=== PATIENT | male | born 1970 | race Caucasian/White ===

== ENCOUNTER 2021-08-08 00:23 | Inpatient (IN) | payer OTHER ==
[2021-08-08] VITALS (19 sets, daily range): BP systolic 88–142; BP diastolic 49–97
[~2021-08-08] VITALS: Ht 185.4 cm; Wt 97.1 kg
[2021-08-08] MEDS ORDERED: IPRATROPIUM NEB FS 0.5 MG/2.5 ML AMPUL.NEB ONE (00:30)
[2021-08-08] MEDS ORDERED: ALBUTEROL FS 2.5 MG/3 ML VIAL.NEB CONTNEB ONE (00:30)
[2021-08-08] MEDS ORDERED: IPRATROPIUM NEB FS 0.5 MG/2.5 ML AMPUL.NEB NEB ONE (00:30)
[2021-08-08] MEDS ORDERED: methylPREDNISolone SOD SUCC 125 MG/2ML VIAL IV ONE (00:30)
[2021-08-08] MEDS ORDERED: ALBUTEROL FS 2.5 MG/3 ML VIAL.NEB ONE (00:30)
--- NOTE | 2021-08-08 00:30 | NUR ---
RT NOTE LATE ENTRY: Pt rec'd on NRB 15LPM. Pt showed saturation as low 60% on NRB, tachypnea, tachycardia, and increased WOB. Pt placed on BIPAP stat per MD orders. Pt on noted settings as charted. ABG to taken. Alarms are set and audible. Ambu bag bedside. Bipap plugged into red outlet. Will continue to monitor closely. Addendum: 08/08/21 at 0122 by J LUIS STEPHEN RT Amended: Links added.
[2021-08-08] MEDS ORDERED: methylPREDNISolone SOD SUCC 125 MG/2ML VIAL ONE (00:31)
--- NOTE | 2021-08-08 00:38 | NUR ---
PT [id number]. SOB X 2 DAYS. SATTING @ 70% ON 15LPM VIA NRB.REPORTED SYNCOPAL EPISODE. PT CAME FROM HOME. DID NOT HAVE ANY HEAD TRUAMA FROM SYNCOPAL EPISODE. PT PRESENTS DIAPHORETIC WITH COOL SKIN. PLACED ON MONITOR.
--- NOTE | 2021-08-08 00:39 | NUR ---
COVID SWAB DONE AND SENT TO LAB
--- NOTE | 2021-08-08 00:39 | NUR ---
BLOOD TAKEN AND SENT TO LAB
[2021-08-08 00:50] LABS: ABG BASE EXCESS -7.6 mmol/L; ABG OXYGEN SATURATION 83.9 % (92.0-98.5); ABG PCO2 21.1 mmHg (35.0-45.0); ABG PH 7.445 (7.350-7.450); ABG PO2 49.1 mmHg (75.0-100.0); AaDO2 642.8 mmHg; COHb 0.4 % (0.5-1.5); MetHb 0.4 % (0.0-1.5); O2Hb 83.2 % (94.0-97.0); SITE, ABG Right Radial; VENT MODE, BG Bipap 24/7 100% RR12
--- NOTE | 2021-08-08 00:53 | NUR ---
RT NOTE LATE ENTRY: STAT ABG taken and critical results given to MD. Bipap changes as charted. Will continue to monitor. Addendum: 08/08/21 at 0122 by J LUIS STEPHEN RT Amended: Links added.
[2021-08-08] MEDS ORDERED: AZITHROMYCIN 500 MG in IV D5W 250 ML IV ONE (01:00)
[2021-08-08] MEDS ORDERED: CEFTRIAXONE 1GM BAG (ER ONLY) 1 GM/50 ML PIGGYBACK IV ONE (01:00)
[2021-08-08 01:02] LABS: BASOPHILS # (AUTO) 0.2 K/uL (0.0-0.2); BASOPHILS % (AUTO) 0.8 % (0.0-2.0); EOSINOPHILS % (AUTO) 0.7 % (0.0-6.0); HEMATOCRIT 40 % (39-51); HEMOGLOBIN 13.1 g/dL (13.5-17.5); LYMPHOCYTES # (AUTO) 3.7 K/uL (0.8-4.8); LYMPHOCYTES % (AUTO) 16.3 % (20.0-44.0); MEAN CORPUSCULAR HGB CONC 33 g/dl (31.0-36.0); MEAN CORPUSCULAR VOLUME 85 fL (80-96); MONOCYTES # (AUTO) 1.3 K/uL (0.1-1.30); MONOCYTES % (AUTO) 5.8 % (2.0-12.0); NEUTROPHILS # (AUTO) 17.3 K/uL (1.8-8.9); NEUTROPHILS % (AUTO) 76.4 % (43.0-81.0); PLATELET COUNT (AUTO) 487 K/uL (150-450); WHITE BLOOD COUNT (AUTO) 22.7 K/uL (4.3-11.0)
[2021-08-08] MEDS ORDERED: CEFTRIAXONE 1GM BAG (ER ONLY) 50 ML IV ONE (01:04)
[2021-08-08] MEDS ORDERED: AZITHROMYCIN 500 MG VIAL ONE (01:04)
[2021-08-08 01:11] LABS: CARBON DIOXIDE 18 mmol/L (21-32); CHLORIDE 98 mmol/L (98-107); CREATININE 1.2 mg/dL (0.6-1.3); GLUCOSE 230 mg/dL (74-106); POTASSIUM 3.8 mmol/L (3.5-5.1); SODIUM SERUM 134 mmol/L (136-145); UREA NITROGEN, BLOOD 20 mg/dL (7-18)
[2021-08-08 01:26] LABS: ALANINE AMINOTRANSFERASE 35 U/L (12-78); ALBUMIN 2.9 g/dL (3.4-5.0); ALKALINE PHOSPHATASE 164 U/L (46-116); ASPARTATE AMINOTRANSFERASE 33 U/L (15-37); BILIRUBIN,TOTAL 0.8 mg/dL (0.2-1.0); TOTAL PROTEIN, SERUM 7.6 g/dL (6.4-8.2)
[2021-08-08 01:28] LABS: D-DIMER 2.7 mg/L(FEU (0.17-0.50)
--- NOTE | 2021-08-08 01:54 | NUR ---
RT AT BED SIDE FOR SECOND ABG DRAW
[2021-08-08 02:32] LABS: ABG BASE EXCESS -4.9 mmol/L; ABG OXYGEN SATURATION 94.7 % (92.0-98.5); ABG PH 7.468 (7.350-7.450); ABG PO2 69.5 mmHg (75.0-100.0); AaDO2 619.5 mmHg; MetHb 0.4 % (0.0-1.5); O2Hb 94.3 % (94.0-97.0); SITE, ABG Right Radial; VENT MODE, BG Bipap 24/8 RR 12 100%
--- NOTE | 2021-08-08 03:05 | NUR ---
ICU 255
--- NOTE | 2021-08-08 03:18 | NUR ---
REPORT GIVEN T O Addendum: 08/08/21 at 0318 by JOSÉ MANUEL REPORT GIVEN TO PRINCE HARMON
[2021-08-08] MEDS ORDERED: Z GUARD REMEDY 2 OZ OINT TP PRN (03:30)
[2021-08-08] MEDS ORDERED: ENOXAPARIN SODIUM 40 MG/0.4 ML DISP.SYRIN SQ SCH (03:30)
[2021-08-08] MEDS ORDERED: MAGNESIUM HYDROXIDE 30 ML UDC PO PRN (03:30)
[2021-08-08] MEDS ORDERED: VALS40TA4 PO (03:30)
[2021-08-08] MEDS ORDERED: ACETAMINOPHEN 325 MG TABLET PO PRN (03:30)
[2021-08-08] MEDS ORDERED: MORPHINE SULFATE INJ 2 MG/ML DISP.SYRIN IV PRN (03:30)
[2021-08-08] MEDS ORDERED: ONDANSETRON HCL/PF 4 MG/2 ML VIAL IVP PRN (03:30)
[2021-08-08] MEDS ORDERED: MAG HYDROX/AL HYDROX/SIMETH 30 ML UDC PO PRN (03:30)
[2021-08-08] MEDS ORDERED: ZOLPIDEM TARTRATE 5 MG TABLET PO PRN (03:30)
[2021-08-08] MEDS ORDERED: METF-440 PO (03:33)
[2021-08-08] MEDS ORDERED: EMPA10TA PO (03:33)
[2021-08-08] MEDS ORDERED: SIMV5TAB59 PO (03:33)
[2021-08-08] MEDS ORDERED: FLUT16SP NS (03:34)
[2021-08-08 04:10] LABS: BILIRUBIN,DIRECT 0.4 mg/dL (0.0-0.2)
--- NOTE | 2021-08-08 04:58 | NUR ---
PATIENT WEANED OFF BI-PAP, PLACED ON NON-REBREATHER 15 L 02% AT 96 %
--- NOTE | 2021-08-08 05:25 | NUR ---
PATIENT TRANSFERRED UNDER ACLS
--- NOTE | 2021-08-08 06:00 | NUR ---
RN NOTES 0518 AM - ADMITTED PATIENT FROM ER VIA STRETCHER AOX 4 WITH NRB MASK @ 15 LPM SATURATION 96-97%. PLACED ON ISOLATION PRECAUTION DUE TO PENDING PCR RESULT. PATIENT DX. WITH PUI, PNA, ACUTE RESPIRATORY DISTRESS AND NSTEMI WITH HISTORY OF HTN AND HLD. NKA. NO C/O OF SOB AND NO CHEST PAIN. CONNECTED PATIENT TO MONITOR REVEALS ST HR 110'S. VSS. AFEBRILE. IV SITE ON RAC G 18 AND LFA G 18 INTACT AND PATENT. SKIN IS INTACT. KEPT PT CLEAN AND COMFORTABLE IN BED. INSTRUCTED HOW TO USED CALL LIGHT. VERBALIZED UNDERSTANDING. KEPT PT CLEAN AND DRY. WILL CONTINUE TO MONITOR.
[2021-08-08 06:17] LABS: ABG BASE EXCESS -4.6 mmol/L; ABG OXYGEN SATURATION 97.7 % (92.0-98.5); ABG PCO2 29.6 mmHg (35.0-45.0); ABG PH 7.419 (7.350-7.450); ABG PO2 99.8 mmHg (75.0-100.0); AaDO2 583.6 mmHg; COHb 0.5 % (0.5-1.5); MetHb 0.1 % (0.0-1.5); O2Hb 97.1 % (94.0-97.0); SITE, ABG Right Radial
[2021-08-08 07:07] LABS: CALCIUM, SERUM 8.5 mg/dL (8.5-10.1); CREATININE 0.9 mg/dL (0.6-1.3); MAGNESIUM 2.3 mg/dL (1.8-2.4); POTASSIUM 4.2 mmol/L (3.5-5.1)
--- NOTE | 2021-08-08 07:15 | NUR ---
RN NOTES PT FOUND IN HIGH FOWLERS POSITION DISPLAYING NO S/S OF DISTRESS, PT ENDORSES NO PAIN AND IS BREATHING EVENLY AND UNLABORED ON 15L NRB. PT IS A&OX4, CALM AND COOPERATIVE. BEDSIDE MONITOR IS NOT SHOWING HEART RATE, RN WILL ATTEMPT TO TROUBLE SHOOT PROBLEM. ALL OTHER VS ARE STABLE, RN WILL TREAT AND MONITOR THROUGHOUT SHIFT. SAFETY MEASURES IN PLACE, BED LOCKED AND IN LOWEST POSITION, SIDE RAILS UPX2, CALL LIGHT WITHIN REACH, PT INSTRUCTED TO CALL FOR ASSISTANCE.
--- NOTE | 2021-08-08 07:18 | NUR ---
CRITICAL LAB GALO CALLED FROM THE LAB, PT'S TROPONIN IS 3.084. RN WILL NOTIFY PROVIDER IMMEDIATELY.
[2021-08-08 07:20] LABS: BASOPHILS % (AUTO) 0.1 % (0.0-2.0); EOSINOPHILS % (AUTO) 0.1 % (0.0-6.0); HEMATOCRIT 35 % (39-51); HEMOGLOBIN 11.6 g/dL (13.5-17.5); LYMPHOCYTES # (AUTO) 0.4 K/uL (0.8-4.8); LYMPHOCYTES % (AUTO) 2.3 % (20.0-44.0); MEAN CORPUSCULAR HGB CONC 33 g/dl (31.0-36.0); MEAN CORPUSCULAR VOLUME 84 fL (80-96); MONOCYTES # (AUTO) 0.4 K/uL (0.1-1.30); MONOCYTES % (AUTO) 2.3 % (2.0-12.0); NEUTROPHILS # (AUTO) 16.6 K/uL (1.8-8.9); NEUTROPHILS % (AUTO) 95.2 % (43.0-81.0); PLATELET COUNT (AUTO) 295 K/uL (150-450); RED BLOOD CELL COUNT(AUTO) 4.19 MIL/uL (4.5-6.0); WHITE BLOOD COUNT (AUTO) 17.4 K/uL (4.3-11.0)
--- NOTE | 2021-08-08 07:24 | NUR ---
MD COMMUNICATION RN INFORMED DR HUANG OF PT'S CRITICAL LAB. ACKNOWLEDGED AND GAVE NO NEW ORDERS.
[2021-08-08 07:31] LABS: C-REACTIVE PROTEIN 12.7 mg/dL (0.0-0.9)
[2021-08-08] MEDS: PANTOPRAZOLE 40 MG TABLET.DR PO SCH (07:37)
[2021-08-08] MEDS: DEXAMETHASONE SOD PHOSPHATE 10 MG/ML VIAL IV SCH (08:58)
[2021-08-08] MEDS ORDERED: DEXAMETHASONE SOD PHOSPHATE 10 MG/ML VIAL IV SCH (09:00)
[2021-08-08] MEDS: FUROSEMIDE 40 MG/4 ML VIAL IV SCH ×2 (12:40→17:56)
--- NOTE | 2021-08-08 14:34 | NUR ---
MD COMMUNICATION GALO FROM LAB CALLED AND SPOKE TO RN, INFORMING HIM OF CRITICAL LAB VALUE, 2.911 TROPONIN. RN SPOKE TO , ACKNOWLEDGED CRITICAL LAB VALUE MD STATED HE WOULD CHANGE ORDERS FOR MEDICATION, MD REQUESTED STOP ON CARDIAC ENZYMES.
[2021-08-08] MEDS: ASPIRIN EC 325 MG TABLET.DR PO SCH (14:53)
[2021-08-08] MEDS: ENOXAPARIN SODIUM 100 MG/ML DISP.SYRIN SQ SCH ×2 (14:55→20:41)
--- NOTE | 2021-08-08 17:52 | NUR ---
MD COMMUNICATION MD CALLED AND GAVE ORDERS, CT OF THE CHEST WITHOUT CONTRAST, BLOOD CULTURES. RN READ BACK EACH ORDER TO CONFIRM. RN WILL ENTER ORDERS DIRECTED.
--- NOTE | 2021-08-08 19:11 | NUR ---
RN NOTES PT FOUND SITTING UPRIGHT IN BED WATCHING TV, DISPLAYING NO S/S OF DISTRESS, PT ENDORSES NO PAIN AND IS BREATHING EVEN AND UNLABORED ON 15L O2 NRB. PT REMAINS ST ON THE BEDSIDE MONITOR. PT IS A&OX4, CALM AND COOPERATIVE. L FA 18G IS PATIENT AND INTACT. SBAR AND REPORT GIVEN TO COBBLER SOLE RN, ALL QUESTIONS ANSWERED. PT ENDORSED IN STABLE CONDITION FOR LILLY.
[2021-08-08] MEDS ORDERED: IV NS 0.9% 250 ML IV PRN (21:00)
[2021-08-09] VITALS (16 sets, daily range): BP systolic 95–131; BP diastolic 50–96
[2021-08-09] MEDS: CEFTRIAXONE 1 G in IV D5W 50 ML IV SCH (00:25)
[2021-08-09] MEDS: AZITHROMYCIN 500 MG in IV D5W 250 ML IV SCH (01:00)
[2021-08-09 05:53] LABS: BASOPHILS % (AUTO) 0.1 % (0.0-2.0); HEMATOCRIT 34 % (39-51); HEMOGLOBIN 11.4 g/dL (13.5-17.5); LYMPHOCYTES # (AUTO) 0.7 K/uL (0.8-4.8); LYMPHOCYTES % (AUTO) 4.4 % (20.0-44.0); MEAN CORPUSCULAR HGB CONC 34 g/dl (31.0-36.0); MEAN CORPUSCULAR VOLUME 83 fL (80-96); MONOCYTES # (AUTO) 0.7 K/uL (0.1-1.30); MONOCYTES % (AUTO) 4.4 % (2.0-12.0); NEUTROPHILS # (AUTO) 15.7 K/uL (1.8-8.9); NEUTROPHILS % (AUTO) 91.1 % (43.0-81.0); PLATELET COUNT (AUTO) 316 K/uL (150-450); RED BLOOD CELL COUNT(AUTO) 4.09 MIL/uL (4.5-6.0); WHITE BLOOD COUNT (AUTO) 17.2 K/uL (4.3-11.0)
[2021-08-09 05:58] LABS: CALCIUM, SERUM 8.1 mg/dL (8.5-10.1); POTASSIUM 4.2 mmol/L (3.5-5.1)
--- NOTE | 2021-08-09 07:30 | NUR ---
RN NOTES PT FOUND LYING SUPINE DISPLAYING NO S/S OF DISTRESS, PT ENDORSES NO PAIN AND IS BREATHING EVEN AND UNLABORED ON 15L O2 NRB. MD SHAFFER WOKE UP PT UPON ROUNDING, PERFORMING ASSESSMENT AND ASKING QUESTIONS. MD ENCOURAGED AMBULATION AND TO TITRATE O2 DOWN. RN ACKNOWLEDGED AND WILL COMPLY. POC DISCUSSED. VSS, RN WILL TREAT AND MONITOR THROUGHOUT SHIFT. SAFETY MEASURES IN PLACE, BED LOCKED AND IN LOWEST POSITION, SIDE RAILS UPX2, CALL LIGHT WITHIN REACH, PT INSTRUCTED TO CALL FOR ASSISTANCE.
[2021-08-09] MEDS: PANTOPRAZOLE 40 MG TABLET.DR PO SCH (07:53)
[2021-08-09] MEDS: DEXAMETHASONE SOD PHOSPHATE 10 MG/ML VIAL IV SCH (08:38)
[2021-08-09] MEDS: FUROSEMIDE 40 MG/4 ML VIAL IV SCH ×3 (08:38→16:12)
[2021-08-09] MEDS: ASPIRIN EC 325 MG TABLET.DR PO SCH (08:39)
[2021-08-09] MEDS: ENOXAPARIN SODIUM 100 MG/ML DISP.SYRIN SQ SCH ×2 (08:41→21:05)
--- NOTE | 2021-08-09 09:00 | NUR ---
RN NOTE PT AMBULATED AROUND UNIT W/O ASSISTANCE ON 6L O2 NC AND PORTABLE PULSE OXIMETER. PT'S SPO2 MAINTAINED 95% +/- 1% AND HR MAINTAINED AT 115 +/- 2 BPM. PT VERBALIZED NO DIFFICULTY, SOB, DISTRESS DURING AMBULATION. PT WAS ABLE TO TALK AND WALK AT THE SAME TIME.
--- NOTE | 2021-08-09 20:00 | NUR ---
BICYCLE I ASSEMBLER NOTES RECEIVED PTS IN BED AWAKE A/O X 4 AMBULATORY , NO SOB NO DISTRESS NOTED ON TELE MONITOR SR-ST AT 95 ON NC AT 5LITERS OF O2 .SATING 99%, ALL NEEDS ATTENDED TOO ,CALL LIGHT WITHIN REACH ,DUE MEDS GIVEN ORDERED NO ASE NOTED , PCR STILL PENDING PRECAUTIONARY MEASURES OBSERVED AT ALL TIMES , WILL CONTINUE TO MONITOR PTS.
[2021-08-10] VITALS: BP 102/60
[2021-08-10] MEDS: CEFTRIAXONE 1 G in IV D5W 50 ML IV SCH (00:01)
[2021-08-10] MEDS: AZITHROMYCIN 500 MG in IV D5W 250 ML IV SCH (01:01)
--- NOTE | 2021-08-10 03:30 | NUR ---
telegraph service rater notes Pts noted on afib 107 on the monitor , sating 97% pts on 5 liters of o2 via nc . At 4am ekg done as ordered -afib. made aware.
[2021-08-10 04:00] VITALS: BP 103/60
[2021-08-10 06:02] LABS: BASOPHILS % (AUTO) 0.2 % (0.0-2.0); HEMATOCRIT 35 % (39-51); HEMOGLOBIN 11.6 g/dL (13.5-17.5); LYMPHOCYTES # (AUTO) 0.8 K/uL (0.8-4.8); LYMPHOCYTES % (AUTO) 6.1 % (20.0-44.0); MEAN CORPUSCULAR HGB CONC 33 g/dl (31.0-36.0); MEAN CORPUSCULAR VOLUME 82 fL (80-96); MONOCYTES # (AUTO) 0.3 K/uL (0.1-1.30); MONOCYTES % (AUTO) 2.4 % (2.0-12.0); NEUTROPHILS # (AUTO) 12.6 K/uL (1.8-8.9); NEUTROPHILS % (AUTO) 91.3 % (43.0-81.0); PLATELET COUNT (AUTO) 357 K/uL (150-450); RED BLOOD CELL COUNT(AUTO) 4.23 MIL/uL (4.5-6.0); WHITE BLOOD COUNT (AUTO) 13.8 K/uL (4.3-11.0)
[2021-08-10 06:24] LABS: ALBUMIN 2.8 g/dL (3.4-5.0); BILIRUBIN,TOTAL 0.6 mg/dL (0.2-1.0); CALCIUM, SERUM 8.6 mg/dL (8.5-10.1); CREATININE 0.9 mg/dL (0.6-1.3); MAGNESIUM 2.7 mg/dL (1.8-2.4); PHOSPHORUS 3.2 mg/dL (2.5-4.9); POTASSIUM 3.5 mmol/L (3.5-5.1); TOTAL PROTEIN, SERUM 6.6 g/dL (6.4-8.2)
--- NOTE | 2021-08-10 06:47 | NUR ---
MEDICAL OFFICE TECHNOLOGIST NOTES PTS REMAINS IN BED A/OX4 ON 5 LITERS OF 02 SATING 98% NO SOB NO DISTRESS NOTED , STILL AFIB ON THE MONITOR , FOR CARDIOLOGY FOLLOW UP, TROP =1.[address] SNOWDEN UPDATED WITH PTS CURRENT CONDITION , RECEIVED TROP =1.101 RESULT FROM LAB MD MADE AWARE WITH NNO AT THIS TIME WILL ENDORSE TO RN DAY SHIFT FOR CONTINUITY OF CARE.
--- NOTE | 2021-08-10 07:30 | NUR ---
CONFERENCE SERVICES DIRECTOR OPENING NOTE RECEIVED PT AWAKE IN BED. A/O X4. PT ON 5LPM O2 VIA NC TOLERATING WELL. NO SOB OR S/S OF RESPIRATORY DISTRESS NOTED. PT ON EXTERNAL WINDOW INSTALLER READING AFIB. PT HAS NO C/O PAIN OR DISCOMFORT AT THIS TIME. IV ACCESS IN LFA #20, INTACT AND PATENT. SAFETY PRECAUTIONS MAINTAINED. BED IN LOWEST LOCKED POSITION, HOB ELEVATED, SIDE RAILS UP X2. CALL LIGHT AND TABLE WITHIN REACH. WILL CONTINUE WITH PLAN OF CARE.
[2021-08-10] MEDS: PANTOPRAZOLE 40 MG TABLET.DR PO SCH (07:38)
[2021-08-10 08:00] VITALS: BP 131/59
[2021-08-10] MEDS: DEXAMETHASONE SOD PHOSPHATE 10 MG/ML VIAL IV SCH (08:34)
[2021-08-10] MEDS: ENOXAPARIN SODIUM 100 MG/ML DISP.SYRIN SQ SCH ×2 (08:37→20:25)
[2021-08-10] MEDS: ASPIRIN EC 325 MG TABLET.DR PO SCH (08:38)
[2021-08-10] MEDS ORDERED: AMIODARONE 150 MG in IV D5W 100 ML IV ONE (09:30)
[2021-08-10] MEDS ORDERED: AMIODARONE 450 MG in IV D5W 250 ML IV PRN (09:30)
[2021-08-10] MEDS: AMIODARONE 450 MG in IV D5W 241 ML IV PRN ×2 (10:16→16:05)
[2021-08-10] MEDS: POTASSIUM CHLORIDE 20 MEQ TAB.PRT.SR PO SCH ×3 (10:21→12:34)
[2021-08-10 12:00] VITALS: BP 101/60
--- NOTE | 2021-08-10 13:50 | NUR ---
RN NOTE IV ACCESS INSERTED IN RIGHT WRIST #22, GOOD BLOOD RETURN NOTED, INTACT, PATENT, AND FLUSHING WELL. PT TOLERATED WELL. WILL CONTINUE WITH PLAN OF CARE.
[2021-08-10 16:00] VITALS: BP 112/70
--- NOTE | 2021-08-10 18:25 | NUR ---
ZOO VETERINARIAN CLOSING NOTE PT IS AWAKE IN BED. A/O X4. PT ON 4LPM O2 VIA NC TOLERATING WELL. NO SOB OR S/S OF RESPIRATORY DISTRESS NOTED. PT ON EXTERNAL FIRE SAFETY INSPECTOR READING CONTROLLED AFIB AT 96BPM. PT HAS NO C/O PAIN OR DISCOMFORT AT THIS TIME. IV ACCESS IN RIGHT WRIST #22 INFUSING AMIODARONE DRIP. ALL NEEDS HAVE BEEN MET. SAFETY PRECAUTIONS MAINTAINED AT ALL TIMES. BED IN LOWEST LOCKED POSITION, HOB ELEVATED, SIDE RAILS UP X2. CALL LIGHT AND TABLE WITHIN REACH. WILL ENDORSE TO ONCOMING NURSE FOR LILLY.
[2021-08-10 20:00] VITALS: BP 113/70
--- NOTE | 2021-08-10 20:00 | NUR ---
JAIRO RN NOTE PT IN BED SITTING UP IN BED, A/O X 4, NO SOB, NO DISTRESS OR DISCOMFORT NOTED. DENIES ANY PAIN. ON AMIO DRIP 0.5 MG AT THIS TIME. NO S/S OF INFILTRATION NOTED. ON TELE MONITOR SR HR 83, SIDE RAILS UP X 3 AND CALL LIGHT WITHIN REACH. VSS. CONTINUE TO MONITOR HIM.
[2021-08-11] VITALS: BP 101/64
[2021-08-11] MEDS: CEFTRIAXONE 1 G in IV D5W 50 ML IV SCH (01:03)
[2021-08-11] MEDS: AZITHROMYCIN 500 MG in IV D5W 250 ML IV SCH (01:52)
[2021-08-11 06:00] LABS: BASOPHILS % (AUTO) 0.1 % (0.0-2.0); HEMATOCRIT 34 % (39-51); HEMOGLOBIN 11.3 g/dL (13.5-17.5); LYMPHOCYTES # (AUTO) 1.1 K/uL (0.8-4.8); LYMPHOCYTES % (AUTO) 8.2 % (20.0-44.0); MEAN CORPUSCULAR HGB CONC 33 g/dl (31.0-36.0); MEAN CORPUSCULAR VOLUME 83 fL (80-96); MONOCYTES # (AUTO) 0.6 K/uL (0.1-1.30); MONOCYTES % (AUTO) 4.2 % (2.0-12.0); NEUTROPHILS # (AUTO) 12.1 K/uL (1.8-8.9); NEUTROPHILS % (AUTO) 87.5 % (43.0-81.0); PLATELET COUNT (AUTO) 311 K/uL (150-450); RED BLOOD CELL COUNT(AUTO) 4.14 MIL/uL (4.5-6.0); WHITE BLOOD COUNT (AUTO) 13.8 K/uL (4.3-11.0)
--- NOTE | 2021-08-11 06:57 | NUR ---
JAIRO RN NOTE PT IN BED AWAKE. NO DISTRESS OR DISCOMFORT NOTED. AMIO DRIP INFUSING AT 0.5 MG PT REMAIN SR HR 90. SIDE RAILS UP X 2 AND CALL LIGHT WITHIN REACH. VSS. WILL ENDORSE TO DAY SHIFT NURSE FOR CONTINUE TO CARE.
[2021-08-11 07:00] LABS: ALBUMIN 2.6 g/dL (3.4-5.0); BILIRUBIN,TOTAL 0.5 mg/dL (0.2-1.0); CREATININE 0.9 mg/dL (0.6-1.3); MAGNESIUM 2.5 mg/dL (1.8-2.4); PHOSPHORUS 2.9 mg/dL (2.5-4.9); POTASSIUM 4.4 mmol/L (3.5-5.1); TOTAL PROTEIN, SERUM 6.2 g/dL (6.4-8.2)
--- NOTE | 2021-08-11 07:27 | NUR ---
RN NOTE PATIENT IS IN BED WITH HOB AT [facility] [place]. PATIENT IS ON 5L NC WITH NO SIGNS OF LABORED BREATHING. PATIENT IS AOX4. LFA 20 AND RWRIST 22 IV IS PATENT AND INTACT. BED IS LOCKED IN THE LOWEST POSITION, 3 GUARD RAILS RAISED, CALL LUTZ WITHIN REACH, AND ALL HOSPITAL SAFETY PRECAUTIONS ARE BEING FOLLOWED. WILL CONTINUE TO MONITOR THROUGHOUT SHIFT.
[2021-08-11 08:00] VITALS: BP 114/70
[2021-08-11] MEDS: PANTOPRAZOLE 40 MG TABLET.DR PO SCH (08:03)
[2021-08-11] MEDS: ASPIRIN EC 325 MG TABLET.DR PO SCH (08:03)
[2021-08-11] MEDS: DEXAMETHASONE SOD PHOSPHATE 10 MG/ML VIAL IV SCH (08:03)
[2021-08-11] MEDS: ENOXAPARIN SODIUM 100 MG/ML DISP.SYRIN SQ SCH ×2 (08:04→21:00)
--- NOTE | 2021-08-11 09:53 | NUR ---
RN NOTE CONSENT OBTAINED FOR PROCEDURE, ANESTHESIA, AND BLOOD TRANSFUSION.
[2021-08-11 12:00] VITALS: BP 104/60
[2021-08-11 16:00] VITALS: BP 126/67
[2021-08-11] MEDS: METOPROLOL TARTRATE 25 MG TABLET PO SCH ×2 (17:05→21:22)
--- NOTE | 2021-08-11 18:40 | NUR ---
RN NOTE PATIENT IS IN BED [facility]OB AT [facility]. PATIENT IS ON 3L NC WITH NO SIGNS OF LABORED BREATHING. PATIENT IS AOX4. LFA 20 AND RWRIST 22 IV IS PATENT AND INTACT. BED IS LOCKED IN THE LOWEST POSITION, 3 GUARD RAILS RAISED, CALL LUTZ WITHIN REACH, AND ALL HOSPITAL SAFETY PRECAUTIONS ARE BEING FOLLOWED. ALL DUE MEDS GIVEN AND PATIENT REMAINED STABLE THROUGHOUT SHIFT.
--- NOTE | 2021-08-11 19:30 | NUR ---
FORMULA CLERK NOTE RECEIVED PATIENT IN BED, AWAKE, ALERT, AND VERBALLY RESPONSIVE. PATIENT AOX4. ABLE TO MAKE NEEDS KNOWN. BREATHING EVEN AND UNLABORED. NO SOB NOTED. PATIENT CURRENTLY ON 2L/MIN NC WITH O2 SATURATION OF 99 PERCENT. SKIN IS WARM AND DRY TO TOUCH AFEBRILE. NO COMPLAINTS OF PAIN. PATIENT AMBULATORY. PATIENT MADE AWARE OF NPO STATUS AFTER MIDNIGHT FOR MORNING. PATIENT VERBALIZED UNDERSTANDING. ALL NEEDS ATTENDED. CALL LIGHT WITHIN REACH.
[2021-08-11 20:00] VITALS: BP 122/65
[2021-08-11] MEDS ORDERED: METOPROLOL TARTRATE 50 MG TABLET PO SCH (21:00)
--- NOTE | 2021-08-11 21:24 | NUR ---
RN NOTE SCHEDULED LOVENOX DOSE TO BE HELD TONIGHT. PER MED, PATIENT TO HAVE LEFT HEART CATHETERIZATION TOMORROW POSSIBLE PCI. EXPLAINED TO PATIENT, PATIENT VERBALIZED UNDERSTANDING.
[2021-08-12] VITALS (20 sets, daily range): BP systolic 101–151; BP diastolic 53–89
[2021-08-12] MEDS: CEFTRIAXONE 1 G in IV D5W 50 ML IV SCH (01:13)
[2021-08-12 06:15] LABS: BASOPHILS % (AUTO) 0.1 % (0.0-2.0); EOSINOPHILS % (AUTO) 0.2 % (0.0-6.0); HEMATOCRIT 36 % (39-51); HEMOGLOBIN 12.2 g/dL (13.5-17.5); LYMPHOCYTES # (AUTO) 1.6 K/uL (0.8-4.8); LYMPHOCYTES % (AUTO) 12.6 % (20.0-44.0); MEAN CORPUSCULAR HGB CONC 34 g/dl (31.0-36.0); MEAN CORPUSCULAR VOLUME 83 fL (80-96); MONOCYTES # (AUTO) 0.6 K/uL (0.1-1.30); MONOCYTES % (AUTO) 4.9 % (2.0-12.0); NEUTROPHILS # (AUTO) 10.2 K/uL (1.8-8.9); NEUTROPHILS % (AUTO) 82.2 % (43.0-81.0); PLATELET COUNT (AUTO) 358 K/uL (150-450); RED BLOOD CELL COUNT(AUTO) 4.37 MIL/uL (4.5-6.0); WHITE BLOOD COUNT (AUTO) 12.4 K/uL (4.3-11.0)
--- NOTE | 2021-08-12 07:20 | NUR ---
RN NOTE NO SIGNIFICANT CHANGES DURING SHIFT. PATIENT AOX4. ABLE TO MAKE NEEDS KNOWN. NO CHANGES IN LOC. BREATHING EVEN AND UNLABORED. STILL ON NC AT 3L/MIN WITH SATURATION OF 99 PERCENT. NO COUGH/FEVER NOTED. PATIENT WAS NPO AFTER MIDNIGHT. CONSENTS SIGNED, PRE-OP CHECKLIST COMPLETED AND FILED IN PATIENT FOLDER. ALL NEEDS ATTENDED. CALL LIGHT WITHIN REACH.
[2021-08-12 07:23] LABS: CALCIUM, SERUM 8.5 mg/dL (8.5-10.1); CREATININE 0.9 mg/dL (0.6-1.3); POTASSIUM 4.3 mmol/L (3.5-5.1)
[2021-08-12] MEDS: PANTOPRAZOLE 40 MG TABLET.DR PO SCH (07:30)
[2021-08-12] MEDS ORDERED: IV NS 0.9% 1,000 ML ONE (08:17)
[2021-08-12] MEDS ORDERED: IODIXANOL 150 ML IV ONE (08:17)
[2021-08-12] MEDS ORDERED: LIDOCAINE HCL/MPF 1% 30 ML VIAL IJ ONE (08:17)
[2021-08-12] MEDS ORDERED: FENTANYL PF 100MCG/2ML AMPUL ONE (08:46)
[2021-08-12] MEDS ORDERED: MIDAZOLAM HCL 2 MG/2ML VIAL ONE (08:46)
[2021-08-12] MEDS ORDERED: NTG 25 MG/D5W 250 ML BTL 25 MG/250 ML BTL IV ONE (08:54)
[2021-08-12] MEDS: ASPIRIN EC 325 MG TABLET.DR PO SCH (09:00)
[2021-08-12] MEDS: METOPROLOL TARTRATE 25 MG TABLET PO SCH ×2 (09:00→22:21)
[2021-08-12] MEDS: ENOXAPARIN SODIUM 100 MG/ML DISP.SYRIN SQ SCH ×2 (09:00→21:00)
--- NOTE | 2021-08-12 09:09 | NUR ---
RN NOTE PT RECEIVED BY SURGERY TEAM. PT WILL HAVE ANGIOGRAM. CONSENT SIGNED. VITALS STABLE. 0900 MEDS NOT GIVEN DUE TO PT AT PROCEDURE
[2021-08-12] MEDS ORDERED: HEPARIN SODIUM, PORCINE 1,000 UNIT/ML VIAL ONE (09:30)
[2021-08-12] MEDS ORDERED: HEPARIN SODIUM, PORCINE 5000 UNITS/1 ML VIAL ONE (09:30)
--- NOTE | 2021-08-12 10:45 | NUR ---
RN NOTES PATIENT RECEIVED FROM DISTRIBUTOR SALES CONSULTANT 51 Y/OLD MALE , NO INTERVENTION DONE. PATIENT HAS TWO TR BAND ON RIGHT FOREARM, INTACT. NO BLEEDING NOTES. ON MY ASSESSMENT REDIAL PULSE PRESENT, ALSO HAS PRESSURE DRESSING ON RIGHT GROIN AREA INTACT, PULSE IS PRESENT, NO BLEEDING AT THIS TIME. PATIENT A/O X3, O22LNC 95%. PATIENT REFUSED PAIN, AND DISCOMFORT, NO NAUSEA. EDUCATED PATIENT KEEP RIGHT ARM AND RIGHT LEG STRATE. PATIENT ASKING FOR WATER. ORDERED LUNCH TRAY. CALL LIGHT WITHIN TO REACH. WILL MONITORING.
--- NOTE | 2021-08-12 12:00 | NUR ---
RN NPOTES PATIENT GETTING ECHO AT THIS TIME EF IA 60 TO 65%. NEXT TO THE BED, ASKING TO SPEAK FIRE PROTECTION ENGINEER ABOUT PLAN FOR NEXT STEP.
--- NOTE | 2021-08-12 12:25 | NUR ---
RN NOTES REMOVED 3 CC OF PAIN AT THIS TIME TR PRESSURE BAND, NO BLEEDING NOTES PULSE IS PRESENT, ALSO CHECKED RIGHT GROIN AREA DRESSING INTACT, SURROUNDING MUSCLES IS SOFT TO TOUCH, PULSE IS PRESENT. ASSIST PATIENT WITH THE LUNCH. OFFERED URINAL.
--- NOTE | 2021-08-12 13:10 | NUR ---
rn notes 1240 REMOVED 3CC OF AIR, 1255-5CC, AND 1310 LAST 5CC OF AIR, NO BLEEDING NOTES, REMOVED 1ST TR PRESSURE BAND, NO BLEEDING NOTED, PULSE IS PRESENT.
[2021-08-12] MEDS: FUROSEMIDE 20 MG/2 ML VIAL IV SCH ×2 (13:20→22:21)
--- NOTE | 2021-08-12 13:30 | NUR ---
RN NOTES REMOVED SECOND TR BANS 2 ML OF AIR AT THIS TIME, PRESENT STRONG PULSE ON RIGHT REDIAL ARTERY, AND ON RIGHT GROIN ARTERY DRESSING INTACT, NO BLEEDING NOTES. NOTIFIED Dr SHEIKH ABOUT PATIENTS HAJA WANTS TO TALK TO HIM ABOUT SURGERY. WILL FOLLOW UP.
--- NOTE | 2021-08-12 14:00 | NUR ---
rn notes patient very anxious, crying, next to the bed. patient noted i am feeling very depress, and helpless because unable to move my hand, and leg unable to urinate and hold urinal . Explained patient abut procedure, and complication again. Patient urinated 600 ml using urinal with assist of . . Notified deburrer strip Dr Reed to call one more time.
--- NOTE | 2021-08-12 14:45 | NUR ---
rn notes Removed 16cc of air from on second TR band,1330-2cc, 1345- 2cc,1400- 3cc, 1415-3cc, 1445-3cc. no bleeding noted, groin area dressing intact and surrounding tissues is soft to touch. Patient urinated 725ml, elevated hob 30 degree. will follow up.
--- NOTE | 2021-08-12 16:00 | NUR ---
RN NOTES REMOVED TR BAND INTACT, NO BLEEDING APPLIED TRANSPARENT DRESSING, , MONITORING RIGHT REDIAL, AND RIGHT FEMORAL, PULSE, PRESENT DRESSING INTACT. PATIENT NOTES FEELING MORE COMFORTABLE. POSITION , ELEVATED HOB 45 DEGREE. SEEN PATIENT VIA COMMUNICATIONS PROJECT MANAGER DR SNOWDEN. NEXT TO THE BED.
--- NOTE | 2021-08-12 18:34 | NUR ---
rn notes patient stable, refused pain, right forearm, and right groin intact, pulse is present, no bleeding noted. patient tolerated dinner 75%. call light within to reach. Seen Dr Herrera surgeon and patient will transfer [facility] for surgery, waiting for available bed. Case management working on, next to the bed. endorsed oncoming nurse follow plan of car.
--- NOTE | 2021-08-12 20:40 | NUR ---
rn cvicu. initial assessment. received the pt rest on the bed. awake, alert, follow commands. cardiac monitor technician showing nsr. oxygen 2l via nasal cannula. sat 98%. iv lt hand 20g. saline lock. rt leg good pulse. often checking. procedure site clean no bleeding or hematoma noted. will continue to monitor.
[2021-08-13] VITALS (19 sets, daily range): BP systolic 99–151; BP diastolic 52–70
[2021-08-13] MEDS: CEFTRIAXONE 1 G in IV D5W 50 ML IV SCH (00:41)
--- NOTE | 2021-08-13 04:07 | NUR ---
agriculturist. AM CARE GIVEN. PT IS ROOM AIR. SAT 95%. NO ACUTE DISTRESS NOTED, STOPPING BUILDER SHOWING NSR, IV LT HAND 20G, . SALINE LOCK. HOB ELEVATED. WILL CONTINUE TO MONITOR VITALS.
[2021-08-13 04:36] LABS: BASOPHILS % (AUTO) 0.1 % (0.0-2.0); EOSINOPHILS % (AUTO) 0.7 % (0.0-6.0); HEMATOCRIT 38 % (39-51); HEMOGLOBIN 12.6 g/dL (13.5-17.5); LYMPHOCYTES # (AUTO) 1.9 K/uL (0.8-4.8); LYMPHOCYTES % (AUTO) 13.7 % (20.0-44.0); MEAN CORPUSCULAR HGB CONC 33 g/dl (31.0-36.0); MEAN CORPUSCULAR VOLUME 83 fL (80-96); MONOCYTES # (AUTO) 0.7 K/uL (0.1-1.30); MONOCYTES % (AUTO) 5.2 % (2.0-12.0); NEUTROPHILS # (AUTO) 11.3 K/uL (1.8-8.9); NEUTROPHILS % (AUTO) 80.3 % (43.0-81.0); PLATELET COUNT (AUTO) 382 K/uL (150-450); RED BLOOD CELL COUNT(AUTO) 4.57 MIL/uL (4.5-6.0); WHITE BLOOD COUNT (AUTO) 14.1 K/uL (4.3-11.0)
[2021-08-13 04:56] LABS: CALCIUM, SERUM 8.3 mg/dL (8.5-10.1); MAGNESIUM 2.3 mg/dL (1.8-2.4); PHOSPHORUS 3.8 mg/dL (2.5-4.9); POTASSIUM 4.2 mmol/L (3.5-5.1)
[2021-08-13] MEDS: PANTOPRAZOLE 40 MG TABLET.DR PO SCH (07:33)
--- NOTE | 2021-08-13 08:30 | NUR ---
RN NOTES GET CALL FROM SURGEON Dr TAYLOR , AND PER MD PATIENT WILL TRANSFER TO THE [facility], FOR SURGERY. NOTIFIED CASE MANAGEMENT TO FOLLOW UP.
--- NOTE | 2021-08-13 09:00 | NUR ---
RN NOTES PATIENT STABLE ,REFUSED PAIN, TOLERATED BREAKFAST WELL, DUE MEDICATION ADMINISTERED,.PATIENT ROOM AIR, USNG URINAL. SEEN HOSPITALIST. NO NEW ORDERS. CALL LIGHT WITHIN TO REACH. WILL FOLLOW UP.
[2021-08-13] MEDS: METOPROLOL TARTRATE 25 MG TABLET PO SCH (09:30)
[2021-08-13] MEDS: FUROSEMIDE 20 MG/2 ML VIAL IV SCH (09:30)
[2021-08-13] MEDS: ENOXAPARIN SODIUM 100 MG/ML DISP.SYRIN SQ SCH (09:42)
[2021-08-13] MEDS ORDERED: IV NS 0.9% 250 ML IV ONE (15:09)
[2021-08-13] MEDS ORDERED: IOHEXOL-350 100 ML VIAL IV ONE (15:09)
--- NOTE | 2021-08-13 15:15 | NUR ---
RN NOTES CTA CHEST DONE , PATIENT SIGN CONSENT FORM.
--- NOTE | 2021-08-13 19:28 | NUR ---
RN NOTES CALLED [facility] FOR REPORT, BECAUSE OF NURSE HAVING RAPID RESPONSE UNABLE TO GET REPORT. [facility] NURSE WILL CALL BACK. PATIENT STABLE, VSS, REFUSED PAIN, AMBULATORY SELF CARE, USING URINAL. CALL LIGHT WITHIN TO REACH. REPORT GIVEN ONCOMING NURSE FOLLOW PLAN OF CARE. PATIENT WILL SPEECH THERAPIST @20:00 VIA AMBULANCE.
--- NOTE | 2021-08-13 19:50 | NUR ---
RN NOTES CALLED [facility] @[phone] SPOKE WITH LOIS (SHELLFISH FARMING SUPERVISOR) AND PROVIDED ALL SIGNIFICANT INFO ABOUT PT. LOIS ACKNOWLEDGED, PT WILL BE ADMITTED TO RM 112 #1. ADVISED THAT PT WILL BE PICKED UP AROUND 1999. SHELLFISH FARMING SUPERVISOR MADE AWARE. WILL WAIT FOR PT TRANSPORTATION SERVICE.
--- NOTE | 2021-08-13 20:40 | NUR ---
RN NOTES PATIENT DISCHARGE GOING TO [facility] FOR [facility], REPORT ALREADY GIVEN. PT IN STABLE CONDITION AND VITAL SIGNS WNL, PT A/OX4 ON ROOM AIR; IN NO ACUTE DISTRESS NOTED, BREATHING UNLABORED. DISCHARGE INSTRUCTIONS GIVEN, ALSO PROVIDED DISCHARGE PACKET WHICH INCLUDES MED RECORDS AND PRESCRIPTION. ALL BELONGINGS ACCOUNTED FOR. IV ACCESS (L FA #20) MAINTAINED FLUSHING AND PATENT. PICKED UP VIA AMBULANCE IN A GURNEY ACCOMPANIED BY 2 EMT PERSONNEL IN STABLE CONDITION. TUBE LANCER MADE AWARE.
== END 2021-08-13 20:40 | disposition short-term general hospital (02) | DRG 871 ==
LOC: ER 00:51 → ICU 03:02 → TELE1 08-09 13:42 → TELE-TD 08-10 10:38 → TELE1 08-11 08:38 → ICU 08-12 10:02 → UNDODISIN 08-13 20:40
PROVIDERS: ADMIT Family Medicine; ATTEND Internal Medicine
PROC: 5A09357 Assistance with Respiratory Ventilation, Less than 24 Consecutive Hours, Continuous Positive Airway Pressure (ICD-10-PCS; principal; 2021-08-08)
PROC: 4A023N7 Measurement of Cardiac Sampling and Pressure, Left Heart, Percutaneous Approach (ICD-10-PCS; 2021-08-12)
PROC: B211YZZ Fluoroscopy of Multiple Coronary Arteries using Other Contrast (ICD-10-PCS; 2021-08-12)
PROC: B310YZZ Fluoroscopy of Thoracic Aorta using Other Contrast (ICD-10-PCS; 2021-08-12)
PROC: B41FYZZ Fluoroscopy of Right Lower Extremity Arteries using Other Contrast (ICD-10-PCS; 2021-08-12)
DX: A40.9 Streptococcal sepsis, unspecified (principal); I21.A1 Myocardial infarction type 2; J96.01 Acute respiratory failure with hypoxia; J15.9 Unspecified bacterial pneumonia; N17.0 Acute kidney failure with tubular necrosis; J12.9 Viral pneumonia, unspecified; D68.59 Other primary thrombophilia; E78.5 Hyperlipidemia, unspecified; I11.0 Hypertensive heart disease with heart failure; I48.91 Unspecified atrial fibrillation; Z20.822 Contact with and (suspected) exposure to COVID-19; Z79.84 Long term (current) use of oral hypoglycemic drugs; E11.65 Type 2 diabetes mellitus with hyperglycemia; I50.9 Heart failure, unspecified; Z79.899 Other long term (current) drug therapy; I35.2 Nonrheumatic aortic (valve) stenosis with insufficiency; Z82.0 Family history of epilepsy and other diseases of the nervous system; Z82.3 Family history of stroke; Z83.3 Family history of diabetes mellitus
CPT/HCPCS: 36221; 36415; 36600; 71045-TC; 71250-TC; 80048-TC; 80053-TC; 80061-TC; 82248-TC; 82728-TC; 82803-TC; 82962-TC; 83605-TC; 83615-TC; 83735-TC; 83880; 84100-TC; 84484-TC; 85025-TC; 85378-TC; 85730-TC; 86140-TC; 87040-TC; 87070-TC; 87081-TC; 87186-TC; 93307-TC; 94640-TC; 94799-TC; 99082-TC; C1769; C1887; C1894; C9803; G0378; G0500; J0282; J0456; J0696; J1100; J1644; J1650; J1940; J2250; J2930; J3010; J3490; J7030; J7050; J7060; Q9967; U0003